=== PATIENT | female | born 1995 | race Two or more races ===

== ENCOUNTER 2025-03-17 16:05 | Emergency (ER) | payer OTHER, SELFPAY ==
[2025-03-17 16:10] VITALS: BP 137/81; PULSE 83; RESP 16; TEMP 36.4; O2SAT 99; BMI 26.8
--- NOTE | 2025-03-17 16:20 | ED.HEATRA ---
HPI - Head Injury General Time Seen by Provider: 16:21 Date Seen: 03/17/25 Chief complaint: Head Injury/Pain Stated complaint: needs x-rays, sent from urgent care Time Seen by Provider: 03/17/25 16:06 Source: patient, RN notes reviewed and revenue stamp clerk () Mode of arrival: ambulatory Limitations: no limitations History of Present Illness HPI Narrative: This 29yo female is sent to the ED from for evaluation of head and hand injury at work. 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 There was no loss of consciousness. She has a small wound above her ear on the left side, there was some bleeding but control now. She has a headache. She denies any hearing changes, no visual changes. The pig then stepped on her hand, her left hand hurts. She has bruising on the dorsum of her hand. She denies any numbness or tingling of the hand. She states her tetanus is up-to-date, she is adamant that there is no chance for at this time. She has not taken any Tylenol or ibuprofen, would appreciate something. She originally went to Urgent Care, she was advised to come here. There has been no nausea or vomiting. Review of Systems Status of ROS: Reports: 6 or more systems reviewed and unremarkable except as noted in History and below Exam Const: Vital Signs, click to edit/add: Vital Signs - 24 hr 03/17/25 16:10 Temperature 97.6 F Pulse Rate [Pulse Oximeter] 83 Respiratory Rate 16 Blood Pressure [Ri ght Upper Arm] 137/81 Pulse Oximetry 99 Oxygen Delivery Me thod Room Air This 29-year-old female is alert, interactive, no apparent distress. She is ambulatory into the ED of her own accord. Pupils equal round reactive, sclera clear, extraocular muscles intact, face atraumatic. TMs canals are normal, no hemotympanum, no trauma noted. Above the left ear there is about a 3-4 mm linear skin laceration that is dried over, wound edges are approximated, no bleeding. There is no significant tissue ecchymosis or swelling but she is minimally tender when I palpate the area. No midline tenderness of her neck, no paraspinous tenderness, neck full range of motion without pain, no adenopathy, no masses. Oropharynx normal, able to open jaw, posterior pharynx and oral mucosa normal, dentition in good repair. Speech is normal. Lungs are clear, good air entry, no wheezing or crackles, no tachypnea. CV regular rate and rhythm, no murmur. She is not tender in the left shoulder down to the left distal forearm, complains of pain when I palpate over the wrist in general, no specific pattern of pain but there is no significant ecchymosis, erythema, swelling or open wounds noted. Range of motion about the wrist is painful for her, limited exam with range of motion done. She has bruising by a the left 2nd distal metacarpal near the joint. She is tender when I palpate, flexion and extension of the left 2nd finger are painful for her but I can assist and do get flexion and extension. Distal neurovascular is intact. She is not tender over the thumb, fingers elsewhere. She is tender over the bruised area by the distal 2nd metacarpal on the dorsal surface, area is raised and bruised. There is no open wound. Documenting provider has reviewed patient's vital signs: yes Course Course ED Course: We will obtain head CT given the area of injury on the head, will also x-ray left hand and wrist given clinical examination. Will give her some Tylenol now. Will have nursing staff get her an ice pack. We reviewed that the side of her head above the ear where she has the small wound has underlying thinner bone of the skull. She does have a headache. Denies loss of consciousness but the force of the injury from the PEG knocking her down does sound significant. She is adamant her tetanus is up-to-date, will not update this here. Will make sure that we do not have any skull fracture or small intracranial bleed from this injury. She certainly could have a concussion. Will also look at the x-rays to make sure she does not have fractures within the hand or wrist. Reevaluation(s) Time of Reevaluation #1: 17:43 Reevaluation #1: Have reviewed with patient her x-ray imaging reports. Did revision lies the wound above left ear, there are no changes, no active bleeding. This is so minimal and small that I would not recommend any intervention. This definitely will heal on its own. We discussed use of a wrist splint for comfort, she is still holding her wrist gingerly along her side. The bruising on the dorsum of the hand has not expanded. Vital Signs Vital signs: Initial Vital Signs Temperature 97.6 F 03/17/25 16:10 Temperature Source Temporal Artery Scan 03/17/25 16:10 Pulse Rate 83 03/17/25 16:10 Respiratory Rate 16 03/17/25 16:10 Blood Pressure 137/81 03/17/25 16:10 Blood Pressure Mean 99 03/17/25 16:10 Blood Pressure Position Sitting 03/17/25 16:10 Pulse Oximetry 99 03/17/25 16:10 Oxygen Delivery Method Room Air 03/17/25 16:10 Vital Signs Temperature 97.6 F 03/17/25 16:10 Pulse Rate 83 03/17/25 16:10 Respiratory Rate 16 03/17/25 16:10 Blood Pressure 137/81 03/17/25 16:10 Pulse Oximetry 99 03/17/25 16:10 Oxygen Delivery Method Room Air 03/17/25 16:10 Temperature 97.6 F 03/17/25 16:10 Pulse Rate 83 03/17/25 16:10 Respiratory Rate 16 03/17/25 16:10 Blood Pressure 137/81 03/17/25 16:10 Pulse Oximetry 99 03/17/25 16:10 Oxygen Delivery Method Room Air 03/17/25 16:10 Medications Administered Medications: Discontinued Medications Generic Name Dose Route Start Last Admin Trade Name Freq PRN Reason Stop Dose Admin Acetaminophen 1,000 mg 03/17/25 16:32 03/17/25 17:15 Acetaminophen 500 Mg Tablet PO 03/17/25 16:33 1,000 mg ONCE ONE Administration MDM - Head Injury Imaging Data CT scan - head: Attestation: I have reviewed the pertinent imaging results. Radiologist's impression: Patient: HEBERT RALPH Facility:?[facility] Patient ID:?[id number] Site Patient ID:?[id number]. Site :?1995 Study:?CT-Head WO-03/17/2025 4:55:00 PM Ordering Physician:Nikos Torres Final Report: INDICATION: Head injury. TECHNIQUE: CT head without contrast. COMPARISON: None. FINDINGS: CSF spaces: Within normal limits for age. Brain parenchyma and extra-axial spaces: The otero-white differentiation is normal. No sign of mass, hemorrhage, or midline shift. No extra-axial fluid collection. Skull base and calvarium: The visualized paranasal sinuses and mastoid air cells demonstrate no acute or significant findings. The visualized orbits are grossly unremarkable. No skull fractures. IMPRESSION: No acute intracranial abnormality. Please note that all CT scans at this facility use dose modulation, iterative reconstruction, and/or weight-based dosing when appropriate to reduce radiation dose to as low as reasonably achievable. Dictated by Tom Castaneda MD @ 03/17/2025 5:37:11 PM (Electronic Signature) XR left wrist: Attestation: I have reviewed the pertinent imaging results. My impression: X-rays reviewed, do not appreciate any acute fracture on my preliminary review. Radiologist's impression: Patient: HEBERT RALPH Facility:?[facility] Patient ID:?[id number] Site Patient ID:?[id number]. Site :?1995 Study:?XRay-Extremity Left WRIST 3V-03/17/2025 4:55:55 PM Ordering Physician:?Jorge A Torres Final Report: Indication: Take steps on hand Comparison: None available. Technique: AP, lateral, and oblique views left wrist were obtained. Findings: There is no displaced fracture or dislocation. The joint spaces are grossly preserved. There is mild carpal soft tissue prominence. Impression: Mild carpal soft tissue prominence without evidence of displaced fracture. Dictated by Carlos Boateng MD @ 03/17/2025 5:25:41 PM (Electronic Signature) XR left hand: Attestation: I have reviewed the pertinent imaging results. My impression: X-rays reviewed personally, do not appreciate any acute fracture. Radiologist's impression: Patient: HEBERT RALPH Facility:?[facility] Patient ID:?[id number] Site Patient ID:?[id number]. Site :?1995 Study:?XRay-Extremity Left HAND 3V-03/17/2025 4:55:41 PM Ordering Physician:?Jorge A Torres Final Report: Indication: Fixed stepped on hand Comparison: None available. Technique: AP, lateral, and oblique views left hand were obtained. Findings: There is no displaced fracture or dislocation. The joint spaces are grossly preserved. The soft tissues are unremarkable. Impression: No evidence of displaced fracture. Dictated by Carlos Boateng MD @ 03/17/2025 5:22:40 PM (Electronic Signature) Discharge Plan Discharge Clinical Impression: Contusion of dorsum of left hand Closed head injury Qualifiers: Encounter type: initial encounter Qualified Code(s): S09.90XA - Unspecified injury of head, initial encounter Superficial laceration of scalp Qualifiers: Encounter type: initial encounter Qualified Code(s): S01.01XA - Laceration without foreign body of scalp, initial encounter Sprain of left wrist Qualifiers: Encounter type: initial encounter Wrist sprain location: unspecified location Qualified Code(s): S63.502A - Unspecified sprain of left wrist, initial encounter Patient Disposition: Home, Self-Care Condition: Stable Instructions: Head Injury (ED), Contusion in Adults (ED), Wrist Sprain (ED), Laceration Without Closure (ED) Additional Instructions: Can use Tylenol 1000 mg 3 times a day and ibuprofen per bottle directions as needed for pain control or headache. If you have ongoing headaches, dizziness, fogginess, light or sound sensitivity, other symptoms of concussion, do recommend follow up in clinic if symptoms last longer than a week. Ice the hand and wrist, can use wrist splint as needed for comfort. If your hand and wrist are not improving over the next 7-10 days, do recommend re-evaluation with consideration of reimaging if felt necessary. The wound on your scalp is superficial, appeared small and was already closed on evaluation here in the ER. You may wash hair as you normally do but be careful to not disrupt this wound. Pat this area dry with a towel, do not vigorously rub. Would anticipate that this wound will be completely healed up within 2 weeks. If there are further concerns or issues, please seek re-evaluation. Activity Level: Activity as Tolerated Follow Up/Referrals: Provider,Not a Local [Primary Care Provider, Family Practice] Stand Alone Forms: MyHealth Info Instructions
--- NOTE | 2025-03-17 16:31 | CRLHL7_ITS ---
For Patients: As a result of the Century Cures Act, medical imaging exams and procedure reports are released immediately into your electronic medical record. You may view this report before your referring provider. If you have questions, please contact your health care provider. Indication: Take steps on hand Comparison: None available. Technique: AP, lateral, and oblique views left wrist were obtained. Findings: There is no displaced fracture or dislocation. The joint spaces are grossly preserved. There is mild carpal soft tissue prominence. Impression: Mild carpal soft tissue prominence without evidence of displaced fracture. Dictated by Carlos Boateng MD @ 03/17/2025 5:25:41 PM (Electronically Signed)
--- NOTE | 2025-03-17 16:31 | CRLHL7_ITS ---
For Patients: As a result of the Century Cures Act, medical imaging exams and procedure reports are released immediately into your electronic medical record. You may view this report before your referring provider. If you have questions, please contact your health care provider. INDICATION: Head injury. TECHNIQUE: CT head without contrast. COMPARISON: None. FINDINGS: CSF spaces: Within normal limits for age. Brain parenchyma and extra-axial spaces: The otero-white differentiation is normal. No sign of mass, hemorrhage, or midline shift. No extra-axial fluid collection. Skull base and calvarium: The visualized paranasal sinuses and mastoid air cells demonstrate no acute or significant findings. The visualized orbits are grossly unremarkable. No skull fractures. IMPRESSION: No acute intracranial abnormality. Please note that all CT scans at this facility use dose modulation, iterative reconstruction, and/or weight-based dosing when appropriate to reduce radiation dose to as low as reasonably achievable. Dictated by Tom Castaneda MD @ 03/17/2025 5:37:11 PM (Electronically Signed)
--- NOTE | 2025-03-17 16:31 | CRLHL7_ITS ---
For Patients: As a result of the Cures Act, medical imaging exams and procedure reports are released immediately into your electronic medical record. You may view this report before your referring provider. If you have questions, please contact your health care provider. Indication: Fixed stepped on hand Comparison: None available. Technique: AP, lateral, and oblique views left hand were obtained. Findings: There is no displaced fracture or dislocation. The joint spaces are grossly preserved. The soft tissues are unremarkable. Impression: No evidence of displaced fracture. Dictated by Carlos Boateng MD @ 03/17/2025 5:22:40 PM (Electronically Signed)
[2025-03-17] MEDS: ACETAMINOPHEN 500 MG TABLET 1000 MG PO (17:15)
== END 2025-03-17 18:32 | disposition home or self-care (01) ==
PROVIDERS: Emergency Provider Family Medicine
DX: R51.9 Headache, unspecified (principal); S60.222A Contusion of left hand, initial encounter; W55.42XA Struck by pig, initial encounter; S01.312A Laceration without foreign body of left ear, initial encounter; Y92.79 Other farm location as the place of occurrence of the external cause; Y99.0 Civilian activity done for income or pay
CPT/HCPCS: 70450; 73110; 73130; 99284; A9270